=== PATIENT | female | born 1995 | race Caucasian/White ===

== ENCOUNTER 2017-04-20 15:57 | Emergency (ER) | payer MEDICAID ==
[~2017-04-20] VITALS: Ht 170.2 cm; Wt 59.0 kg
[2017-04-20] MEDS ORDERED: SODIUM CHLORIDE 0.9% 500 ML IVB ONE (16:26)
[2017-04-20 16:55] LABS: Urine Bilirubin Negative (Negative); Urine Blood Negative /uL (Negative); Urine Color Yellow (Yellow); Urine Glucose Normal (Normal); Urine Ketone Negative (Negative); Urine Mucus FEW (None Seen); Urine Nitrite Negative (Negative); Urine RBC 16 /hpf (0 - 4); Urine Squamous Epithelial Cell FEW /hpf (<5); Urine Urobilinogen Normal (Negative); Urine pH 5.5 (5.0-8.0)
[2017-04-20 17:24] LABS: Basophils # (auto) 0 uL; Basophils % (auto) 0.5 % (0.0-2.0); CONDITION Y; Eosinophils # (auto) 0.1 uL; Eosinophils % (auto) 1.2 % (0.0-7.0); Hematocrit 38.5 % (36.0-46.0); Hemoglobin 12.9 g/dL (12.2-16.2); Lymphocytes # (auto) 1.3 uL; Lymphocytes % (auto) 18.7 % (10.0-50.0); Mean Corpuscular Hemoglobin 30.6 pg (28.0-32.0); Mean Corpuscular Hgb Conc. 33.5 g/dL (32.0-36.0); Mean Corpuscular Volume 91.4 fL (80.0-100.0); Mean Platelet Volume 9.1 fL (7.4-10.4); Monocytes # (auto) 0.6 uL; Monocytes % (auto) 8.1 % (0.0-12.0); Neutrophils % (auto) 71.5 % (37.0-80.0); Platelet Count (auto) 249 10^3/uL (140-450); Red Cell Distribution Width 13.6 % (11.6-16.0)
[2017-04-20 18:01] LABS: Albumin 3.4 g/dL (3.4-5.0); BUN/Creatinine Ratio 13.3; Bilirubin, Total 0.4 mg/dL (0.2-1.0); Magnesium 2.1 mg/dL (1.6-2.6); Total Protein 6.7 g/dL (6.4-8.2)
[2017-04-20 19:11] LABS: Potassium 4.1 mmol/L (3.5-5.1)
[2017-04-20 19:18] VITALS: BP 118/70
== END 2017-04-20 19:04 | disposition home or self-care (01) ==
LOC: ER 16:06
DX: R56.9 Unspecified convulsions (principal); R51 Headache; N39.0 Urinary tract infection, site not specified; F12.10 Cannabis abuse, uncomplicated
CPT/HCPCS: 36415; 70450; 80053; 80307; 81001; 81025; 83735; 85025; 94761; 96360; 96361; 99285; J7030

== ENCOUNTER 2017-04-23 15:55 | Emergency (ER) | payer MEDICAID ==
[~2017-04-23] VITALS: Ht 165.1 cm; Wt 54.4 kg
[2017-04-23] MEDS ORDERED: SODIUM CHLORIDE 0.9% 1,000 ML IVB ONE (16:03)
[2017-04-23 17:26] LABS: BUN/Creatinine Ratio 18.2; Calcium 8.3 mg/dL (8.5-10.1); Potassium 3.7 mmol/L (3.5-5.1)
[2017-04-23 18:57] VITALS: BP 105/59
== END 2017-04-23 19:03 | disposition short-term general hospital (02) ==
LOC: EDBD 15:55 → ER 15:55
DX: R56.9 Unspecified convulsions (principal)
CPT/HCPCS: 36415; 80048; 94761; 96360; 96361; 99285; J7030